=== PATIENT | male | born 1990 | race Caucasian/White ===

== ENCOUNTER → 2025-04-03 | Outpatient (CLI) | payer MEDICAID, SELFPAY ==
--- NOTE | 2025-04-03 16:37 | XR_ITS ---
Exam: elbow bilateral, 6 views Technique: Elbow AP, oblique, each elbow 6 views Exam date and time: April 03, 2025, 7404 hours INDICATION: Bilateral elbow swelling and pain beginning 2 years ago, gout history. FINDINGS: Bilateral mild elbow osteoarthritis 3 mm posterior right bony olecranon spur No elbow effusions IMPRESSION: Mild bilateral elbow osteoarthritis.
--- NOTE | 2025-04-03 16:37 | XR_ITS ---
Examination: Knee, right, 3 views Technique: Knee AP, lateral, oblique 3 views Date and time of exam: April 03, 2025, 1704 hours INDICATIONS: Right knee pain beginning 2 years ago FINDINGS: Mild to moderate tricompartment osteoarthritis. No fracture or dislocation IMPRESSION: Mild to moderate tricompartment osteoarthritis Faint meniscus calcification
== END | disposition home or self-care (01) ==
LOC: CDIM 16:33
PROVIDERS: PCP Family Medicine; Referring Provider Family Medicine; Visit Provider Family Medicine
DX: M17.11 Unilateral primary osteoarthritis, right knee (principal); M25.861 Other specified joint disorders, right knee; M19.022 Primary osteoarthritis, left elbow; M19.021 Primary osteoarthritis, right elbow
CPT/HCPCS: 73080; 73562